=== PATIENT | female | born 1965 | race Caucasian/White ===

== ENCOUNTER 2021-04-08 09:25 | Day surgery (SDC) | payer MEDICARE, MEDICAID ==
[~2021-04-08] VITALS: Ht 160 cm; Wt 68.1 kg
[~2021-04-08 09:25] MED LIST: DULO30CA2 PO; FENT-58 TD; GABA800T5 PO; HYDR-826 PO; MONT10TA6 PO; OXYC5CAP2 PO; PANT40TA6 PO; RIME75TA PO; SUMA6CAR2 SC; SUVO5TAB PO; TAMO20TA PO; VARE1TAB21 PO; ZIPR80CA2 PO; ZIPR80CA3 PO; ZONI100C29 PO; doxepin PO
[2021-04-08] MEDS ORDERED: LACTATED RINGERS 1,000 ML IV SCH (10:00)
[2021-04-08] MEDS ORDERED: CHLORHEXIDINE 15 ML UDC PO ONE (10:00)
[2021-04-08 10:03] VITALS: BP 138/96
[2021-04-08] MEDS ORDERED: CHLORHEXIDINE 15 ML UDC ONE (10:05)
[2021-04-08] MEDS ORDERED: HYDROmorphone 1 MG/ML, 1ML INJ IVPush PRN (10:30)
[2021-04-08] MEDS ORDERED: MEPERIDINE/PF 25MG/0.5ML IVPush PRN (10:30)
[2021-04-08] MEDS ORDERED: ONDANSETRON 2MG/ML, 2ML IVPush PRN (10:30)
[2021-04-08] MEDS ORDERED: LABETALOL 5MG/ML, 20ML IV PRN (10:30)
[2021-04-08] MEDS ORDERED: PROMETHAZINE 25 MG/ML, 1ML IVPush PRN (10:30)
[2021-04-08] MEDS ORDERED: ACETAMINOPHEN 325 MG TABLET PO PRN (10:30)
[2021-04-08] MEDS ORDERED: hydrALAzine 20 MG/ML, 1ML IV PRN (10:30)
[2021-04-08] MEDS ORDERED: OXYcodone 5 MG/5 ML ORAL.SOL UDC PO PRN (10:30)
[2021-04-08] MEDS ORDERED: BUPIVACAINE LIPOSOME/PF 10ML INFIL ONE (10:35)
[2021-04-08] MEDS ORDERED: FENTANYL PF 250 MCG/5ML ONE (10:38)
[2021-04-08] MEDS ORDERED: MIDAZOLAM 1 MG/ML, 2ML ONE (10:38)
[2021-04-08] MEDS ORDERED: ROCURONIUM 10MG/ML,5ML ONE (10:39)
[2021-04-08] MEDS ORDERED: CEFOTETAN 2 GM ONE (11:10)
[2021-04-08] MEDS ORDERED: DEXAMETHASONE 4 MG/ML, 1ML ONE ×2 (11:17)
[2021-04-08] MEDS ORDERED: ONDANSETRON 2MG/ML, 2ML ONE (11:18)
[2021-04-08] MEDS ORDERED: PROPOFOL 10 MG/ML, 20ML ONE (11:18)
[2021-04-08] MEDS ORDERED: SUCCINYLCHOLINE 20 MG/ML, 10ML ONE (11:18)
[2021-04-08] MEDS ORDERED: FENTANYL PF 100 MCG/2ML ONE (12:19)
[2021-04-08] MEDS: FENTANYL PF 100 MCG/2ML IV PRN ×5 (12:21→13:06)
[2021-04-08] MEDS ORDERED: KETOROLAC 30 MG/1 ML ONE (12:24)
[2021-04-08] MEDS ORDERED: ACETAMINOPHEN 650 MG/20.3 ML UDC ONE (12:24)
[2021-04-08] MEDS ORDERED: OXYcodone 5 MG/5 ML ORAL.SOL UDC ONE (12:25)
[2021-04-08] MEDS ORDERED: KETOROLAC 30 MG/1 ML IVPush PRN (12:30)
[2021-04-08] MEDS ORDERED: LORazepam 2 MG/ML, 1ML IVPush PRN (13:00)
== END 2021-04-08 15:15 | disposition home or self-care (01) ==
LOC: OUT 09:25
PROVIDERS: ATTEND Surgery
DX: K64.4 Residual hemorrhoidal skin tags (principal); K64.8 Other hemorrhoids; A63.0 Anogenital (venereal) warts; K21.9 Gastro-esophageal reflux disease without esophagitis; J45.909 Unspecified asthma, uncomplicated; M19.90 Unspecified osteoarthritis, unspecified site; F17.210 Nicotine dependence, cigarettes, uncomplicated; Z88.0 Allergy status to penicillin; Z88.8 Allergy status to other drugs, medicaments and biological substances; Z86.73 Personal history of transient ischemic attack (TIA), and cerebral infarction without residual deficits; Z90.49 Acquired absence of other specified parts of digestive tract; Z98.890 Other specified postprocedural states; Z79.899 Other long term (current) drug therapy; Z85.3 Personal history of malignant neoplasm of breast; Z20.822 Contact with and (suspected) exposure to COVID-19
CPT/HCPCS: 46260; 46910; 88304; 93005; J0330; J1100; J1885; J2060; J2250; J2405; J2704; J3010; J7120; U0003; U0005